=== PATIENT | female | born 1990 | race Caucasian/White ===

== ENCOUNTER 2017-11-07 08:03 | Emergency (ER) | payer OTHER ==
[~2017-11-07] VITALS: Ht 165.1 cm; Wt 63.5 kg
[~2017-11-07 08:03] MED LIST: NORCO 5-325 TA1 EACH PO
[2017-11-07] MEDS ORDERED: ONDANSETRON ODT8 MG PO (09:23)
== END 2017-11-07 09:34 | disposition home or self-care (01) ==
LOC: ED 08:03
DX: R10.9 Unspecified abdominal pain (principal); Z87.891 Personal history of nicotine dependence
CPT/HCPCS: 80053; 81001; 84703; 85025; 99284

== ENCOUNTER 2018-09-10 13:49 | Emergency (ER) | payer OTHER ==
[~2018-09-10] VITALS: Ht 165.1 cm; Wt 63.5 kg
[~2018-09-10 13:49] MED LIST changes: +ONDANSETRON ODT8 MG PO
== END 2018-09-10 15:47 | disposition home or self-care (01) ==
LOC: ED 13:49
DX: S13.9XXA Sprain of joints and ligaments of unspecified parts of neck, initial encounter (principal); T14.8XXA Other injury of unspecified body region, initial encounter; S64.92XA Injury of unspecified nerve at wrist and hand level of left arm, initial encounter; S64.91XA Injury of unspecified nerve at wrist and hand level of right arm, initial encounter; Z88.5 Allergy status to narcotic agent; W22.8XXA Striking against or struck by other objects, initial encounter
CPT/HCPCS: 72050; 99283

== ENCOUNTER 2020-01-19 15:13 | Emergency (ER) | payer OTHER ==
[~2020-01-19] VITALS: Ht 165.1 cm; Wt 63.1 kg
== END 2020-01-19 15:30 | disposition home or self-care (01) ==
LOC: ED 15:13
DX: M25.462 Effusion, left knee (principal)

== ENCOUNTER 2023-03-23 10:18 | Inpatient (IN) | payer OTHER ==
[~2023-03-23] VITALS: Ht 165.1 cm; Wt 98.9 kg
[2023-03-23 10:53] LABS: HEMATOCRIT 36.7 % (35.0-50.0); HEMOGLOBIN 12.1 g/dL (12.0-18.0); MCH 29.7 (27-36); MCHC 33.1 g/dl (30-36); MCV 89.8 fl (81-99); RBC 4.08 M/ul (4.3-5.7); RDW 14.7 (10.5-15.0)
[2023-03-23 11:16] LABS: AMPHETAMINES, URINE NEGATIVE (NEGATIVE); BARBITURATES, URINE NEGATIVE (NEGATIVE); BENZODIAZEPINE, URINE NEGATIVE (NEGATIVE); BUPRENORPHINE, URINE NEGATIVE (NEGATIVE); CANNABINOID, URINE NEGATIVE (NEGATIVE); COCAINE, URINE NEGATIVE (NEGATIVE); ECSTASY, URINE NEGATIVE (NEGATIVE); FENTANYL, URINE NEGATIVE (NEGATIVE); METHADONE, URINE NEGATIVE (NEGATIVE); OPIATES, URINE NEGATIVE (NEGATIVE); OXYCODONE, URINE NEGATIVE (NEGATIVE); PHENCYCLIDINE, URINE NEGATIVE (NEGATIVE)
[2023-03-23 11:31] VITALS: BP 127/81
[2023-03-23 11:33] LABS: ABO A; ANTIBODY SCREEN NEGATIVE; RH POSITIVE
--- NOTE | 2023-03-23 11:57 | PR ---
[facility] [address] [facility] [place], [place] [address] Signed Progress Notes IP Datetime Report Generated by CPKendra: 03/23/2023 11:57 PROGRESS NOTES: [id number] Impression: Normal Progression of Labor Procedures: Artificial ROM Plan: Continue Present Management VITAL SIGNS: [id number] Vital Signs: Reviewed; Within Normal Limits EXAM: [id number] Dilatation: 6.5 Effacement: 100 Station: -2 Contractions: q 2 to 4 min MEMBRANES: [id number] Comments: Progressing. Will continue. FETUS A: [id number] FHR Baseline: 135 Variability: Moderate 6-25bpm Accelerations: 15X15 Decelerations: Early FHR Category: Category I Presentation: Vertex Comments on Fetus A: good variability/accels FETUS B: [id number] Signing Physician: Bebe Martinez MD Copies: ~ *Electronically Signed* 03/23/23 1157 BEBE MARTINEZ MD PATIENT NAME: ALBER HOOKS PROGRESS NOTE DATE OF : 89 PHYSICIAN: BEBE MARTINEZ MD RPT #: [id number] REPORT IS CONFIDENTIAL AND NOT TO BE RELEASED WITHOUT AUTHORIZATION
[2023-03-24 05:40] LABS: HEMATOCRIT 33.9 % (35.0-50.0); HEMOGLOBIN 11.3 g/dL (12.0-18.0); MCHC 33.2 g/dl (30-36); MCV 90.4 fl (81-99); RBC 3.75 M/ul (4.3-5.7); RDW 14.5 (10.5-15.0)
--- NOTE | 2023-03-24 08:33 | PR ---
[facility] [address] [place], [place] [address] Signed PP Progress Notes Datetime Report Generated by CPN: 03/24/2023 08:33 SUBJECTIVE: [id number] Pain: Within Normal Limits Nausea/Vomiting: Denies Bowel Movement: Yes Vital Signs: [id number] Vital Signs: Reviewed; Within Normal Limits Cardiovascular: Normal Respiratory: Normal Abdomen/Uterus: Normal Lochia: Normal Vulva/Perineum: Not Done Breasts: Not Done CVA Tenderness: Normal Extremities: Normal Incision: Not Applicable Progress: Normal Exam Comments: Fundus firm U-2 nontender IMPRESSION/PLAN/PROCEDURES: [id number] Impression: Normal Progression Plan: Discharge Progress Notes: Pt seen and examined. Doing well. Ambulating, voiding, and tolerating full diet. Pain and lochia minimal. well. No fevers/chills and desires d/c home today. Reviewed d/c meds, instructions, and options for pp contraception. All questions answered. Signing Physician: Lory Cleveland DO Copies: ~ *Electronically Signed* 03/24/23 0858 LORY CLEVELAND (CARMEN) DO PATIENT NAME: ALBER HOOKS PROGRESS NOTE DATE OF : [birth year] PHYSICIAN: LORY CLEVELAND) DO RPT #: [id number] REPORT IS CONFIDENTIAL AND NOT TO BE RELEASED WITHOUT AUTHORIZATION
== END 2023-03-24 12:40 | disposition home or self-care (01) | DRG 807 ==
LOC: FBCO 10:18 → FBC 10:25
PROVIDERS: ADMIT Obstetrics & Gynecology; ATTEND Obstetrics & Gynecology
PROC: 10E0XZZ Delivery of Products of Conception, External Approach (ICD-10-PCS; principal; 2023-03-23)
PROC: 10907ZC Drainage of Amniotic Fluid, Therapeutic from Products of Conception, Via Natural or Artificial Opening (ICD-10-PCS; 2023-03-23)
DX: O71.82 Other specified trauma to perineum and vulva (principal); Z37.0 Single live birth; Z3A.38 38 weeks gestation of pregnancy
CPT/HCPCS: 36415; 80307; 85027; 86850; 86900; 86901; A9270; J2590